=== PATIENT | male | born 1950 | race Caucasian/White ===

== ENCOUNTER 2016-09-14 13:27 | Outpatient (CLI) ==
--- NOTE | 2016-09-14 14:19 | DI ---
Examination: Five radiographic images of the cervical spine. Comparison: None available. Reason for study: Disc degeneration. FINDINGS: Imaging was obtained of the cervical spine from C2-C6. The C6-C7 interspace and C7-T1 in terspace as well as the C6-T1 vertebral bodies are not well seen secondary to summation artifact. T here are operative changes after anterior cervical discectomy and fusion spanning C5-C7. There is ap parent fusion of the cervical spine from C4-C6. There is a reversal of the cervical lordosis with lo ss of intervertebral body disc space height most notably at C3-C4. The prevertebral soft tissues are within normal limits. The dens appears intact on the [place] view. Impression: 1. Multilevel degenerative disc disease with operative changes and although fusion of the vertebral bodies as described. 2. Reversal of the cervical lordosis and intervertebral body disc space height loss. If clinical c oncern exists for an osseous injury, a CT scan may be performed. If clinical concern exists for rad iculopathy, MRI may be performed.
--- NOTE | 2016-09-14 14:30 | DI ---
Examination: Three radiographic images of the lumbar spine. Comparison: None available. Reason for study: Disc degeneration. FINDINGS: Multilevel degenerative disc disease is seen with loss of intervertebral body disc space height most notably at L4-5 and L5-S1 with anterior osteophyte formation and facet hypertrophy. The re is maintenance of the lumbar lordotic curve. The abdominal aorta is calcified. No acute fractur e or listhesis. Impression: 1. Multilevel degenerative disc disease without evidence of acute fracture or listhesis. 2. Intervertebral body disc space height loss at L4-5 and L5- S1.
== END 2016-09-14 13:28 | disposition home or self-care (01) ==
LOC: RAD 13:27
PROVIDERS: ATTEND Pain Medicine Interventional Pain Medicine
DX: M51.26 Other intervertebral disc displacement, lumbar region (principal); M47.816 Spondylosis without myelopathy or radiculopathy, lumbar region; M96.1 Postlaminectomy syndrome, not elsewhere classified; M50.321 Other cervical disc degeneration at C4-C5 level; M50.322 Other cervical disc degeneration at C5-C6 level; M50.323 Other cervical disc degeneration at C6-C7 level; M51.36 Other intervertebral disc degeneration, lumbar region

== ENCOUNTER 2017-06-25 23:47 | Outpatient (CLI) | END 2017-06-25 23:48 | disposition short-term general hospital (02) | LOC: AMBL 23:47 | PROVIDERS: ATTEND Emergency Medicine | DX: R06.02 Shortness of breath (principal); R41.0 Disorientation, unspecified; R40.2421 Glasgow coma scale score 9-12, in the field [EMT or ambulance]; R23.0 Cyanosis; R60.0 Localized edema; R00.0 Tachycardia, unspecified; I49.3 Ventricular premature depolarization; R06.2 Wheezing ==

== ENCOUNTER 2017-10-26 07:26 | Emergency (ER) | payer OTHER ==
[2017-10-26 07:35] VITALS: BP 193/104; TEMP 98.5; BMI 28.1
[2017-10-26] MEDS ORDERED: LASIX ONE (07:45)
--- NOTE | 2017-10-26 08:03 | DI ---
EXAM: Chest one view, frontal view only. HISTORY: Respiratory distress. COMPARISON: None available. FINDINGS: Endotracheal tube tip is less than 1 cm above the tonya. Heart size is normal. Peribron chial thickening and reticulonodular opacities seen throughout both lungs. More discrete nodules als o present throughout both lungs. No pleural effusion or pneumothorax identified. External defibrill ator pad is present. There has been previous ACDF IMPRESSION: 1. Endotracheal tube tip less than 1 cm above the tonya. This should be retracted. 2. Peribronchial thickening, bilateral reticulonodular opacities and bilateral pulmonary nodules whi ch could be infectious, inflammatory or neoplastic. Follow-up is recommended.
[2017-10-26] MEDS ORDERED: URO-JET MUCOUSMEMB ONE (08:10)
[2017-10-26] MEDS ORDERED: ATIVAN IVP STA (08:10)
[2017-10-26] MEDS ORDERED: DIPRIVAN 100 ML VIAL 100 ML IV ONE (08:17)
[2017-10-26] MEDS ORDERED: ROCEPHIN 1 GM in SODIUM CHLORIDE 50 ML IV STA (08:38)
[2017-10-26] MEDS ORDERED: ROCEPHIN ONE (08:42)
--- NOTE | 2017-10-26 08:45 | ED.PDOC ---
Procedures - Intubation Time of Intubation: 07:40 Type of Tube Used: Endotracheal Tube Size: 7.5 Number of Attempts: 3 (multiple attempts on ambulance) Glidescope Used: Yes CO2 Detector Used: Yes Lung Sounds Equal Bilaterally: Yes Intubation Complications: Present: No complications Tube Inserted By: Dr Rodriguez/ Cosme Coyle TRAP OPERATOR called to assist Tube Placement Verified by X-ray: Yes Conscious Sedation - Pre-op Assessment Weight: 185 lb 3.013 oz - Medical History Past Medical History: Other
--- NOTE | 2017-10-26 08:46 | ED.PDOC ---
Procedures - IV/Art Line Insertion Location: lt wrist Type of Line: Peripheral IV Invasive Line/IV Catheter Gauge: 20 Number of Attempts: 1 Blood Return Positive: Yes Invasive Line/IV Flushes Without Difficulty: Yes Conscious Sedation - Pre-op Assessment Weight: 185 lb 3.013 oz - Medical History Past Medical History: Other
--- NOTE | 2017-10-26 08:50 | ED.PDOC ---
General ED Provider: Dr. CHELO ELAM Chief Complaint: Cardiac Arrest Stated Complaint: EMS responded to local residence for thei 67 y/o w male for complaints of SOB. Upon arrival patient awake, responsive, non verbal. Respirations labored, Spontaneous HR. Once moved to ambulance, patient coded. CPR initiated. Not intubated. Upon arrival here patient had received 3 amps EPI and CPR continued. Once on monitor HR sinus tachycardia at 110 with spontaneous labored respirations. Patient bagged and O2 sat 94 %. Non reponsive to verbal stimuli. Prepared to intubate patient. IO peripheral IV and 2nd periperal Line started. Time Seen by Physician: 07:28 Mode of Arrival: Ambulance Information Source: EMT Exam Limitations: Clinical condition Primary Care Provider: FELA SAMAYOA Nursing and Triage Documentation Reviewed and Agree: Yes Reviewed sepsis parameters & appropriate labs ordered?: Yes System Inflammatory Response Syndrome: Not Applicable Sepsis Protocol: For patient's 13 years and over: Temp is 96.8 and below OR 101 and greater Pulse >90 BPM Resp >20/minute Acutely Altered Mental Status Are patient's symptoms suggestive of a new infection, such as: -Pneumonia -Skin, Soft Tissue -Endocarditis -UTI -Bone, Joint Infection -Implantable Device -Acute Abdominal Infection -Wound Infection -Meningitis -Blood Stream Catheter Infection -Unknown System Inflammatory Response Syndrome: 1yr-4yr with HR>145 Cardiac Resuscitation - Cardiac Resuscitation/Physical Exam Onset/Duration: Prior to arrival Witnessed Arrest: Yes Down-time Before BLS Initiated: <2 min Down-time Before ALS Initiated: < 3 min Airway Prehospital Findings: Reports: Patent Breathing Prehospital Findings: Reports: Apnea Circulation/Rhythm Prehospital Findings: Reports: Pulses absent Disability/Neurological Prehospital Findings: Reports: Responsive Airway Prehospital Intervention: Reports: Oral airway Breathing Prehospital Intervention: Reports: Oxygen, Bag-valve mask Circulation/Rhythm Prehospital Intervention: Reports: Chest compressions, IV/IO placed, Epinephrine Breathing Prehospital Response: Present: Equal breath sounds Circulation/Rhythm Prehospital Response: Present: Pulses absent, Asystole Airway ED Findings: Patent, Gag reflex absent Breathing ED Findings: Present: Lung sounds clear, Breath sounds decreased Circulation/Rhythm ED Findings: Present: Pulses present Disability/Neurological ED Findings: Present: Responsive Airway ED Intervention: Chin lift, Jaw thrust Breathing ED Intervention: ETT replaced, Intubated by ED physician Circulation/Rhythm ED Intervention: Chest compressions Airway ED Response: Appropriate Breathing ED Response: ETT in airway, Equal breath sounds, Confirmed by auscultation, Confirmed by CO2 detector Circulation/Rhythm ED Response: Present: Pulses present, Sinus Tachycardia Right Pupil: Reactive Left Pupil: Reactive Review Of Systems: Unable due to extremis EMS/Code Sheet Reviewed: Yes Patient is a DNR: No Patient Has a Living Will: No Resuscitation Successful: Yes Differential Diagnoses: Respiratory Failure Past Medical History - Past Medical History Endocrine: Reports: DM 2 Cardiovascular: Reports: CAD, NM, Hypertension, CHF Respiratory: Reports: COPD, Pneumonia Hematological: Reports: Unknown Gastrointestinal: Reports: Unknown Genitourinary: Reports: Unknown Neuro/Psych: Reports: Unknown Musculoskeletal: Reports: Unknown Cancer: Reports: Unknown - Surgical History General Surgical History: Reports: Unknown - Family History Family History: Reports: Unknown - Social History Smoking Status: Former smoker, Unknown if ever smoked Hx Substance Use: No Interpretation - Radiology Interpretation Radiology Interpretation By: Radiologist Exam Interpreted: Portable CXR Procedures - Intubation Indication: Present: Respiratory Insufficiency Time of Intubation: 07:20 Type of Tube Used: Endotracheal Cricoid Pressure Used: Yes Tube [place] Used: Yes Number of Attempts: 3 Suction Used: Yes Glidescope Used: Yes CO2 Detector Used: Yes Lung Sounds Equal Bilaterally: Yes Intubation Complications: Present: No complications Tube Inserted By: Dr Elam Tube Placement Verified by X-ray: Yes Re-Evaluation - Re-Evaluation Time of Re-Evaluation: 07:45 Status: Improved Vital Signs Stable: Yes Appearance: NAD Lungs: Other (Few wheezes Lt ant /lat chest) Neuro: Other (Awake, non verbal intubated) CV: RRR Critical Care Note - Critical Care Note Total Time (mins): 100 Course - Course Hematology/Chemistry: 10/26/17 07:35 10/26/17 07:35 Orders, Labs, Meds: Lab Review 10/26/17 10/26/17 10/26/17 07:35 07:35 07:35 WBC 21.73 H RBC 4.43 L Hgb 11.0 L Hct 40.5 L MCV 91.4 MCH 24.8 L MCHC 27.2 L RDW Coeff of Eunice 16.7 H Plt Count 315 Immature Gran % (Auto) 3.9 Neut % (Auto) 80.3 Lymph % (Auto) 11.5 [place]ick[place] % (Auto) 4.1 Eos % (Auto) 0.0 Baso % (Auto) 0.2 Immature Gran # (Auto) 0.9 Neut # (Auto) 17.5 H Lymph # (Auto) 2.5 [place] # (Auto) 0.9 Eos # (Auto) 0.0 Baso # (Auto) 0.0 Puncture Site R rad O2 Saturation Not Reportable ABG pH 6.927 L* ABG pCO2 > 130.0 H ABG pO2 66.0 L ABG HCO3 Not Reportable ABG Total CO2 Not Reportable ABG Base Excess Not Reportable Reilly Test + O2 Delivery Device bagged FiO2 % 100.0 Sodium 137 Potassium 5.2 H Chloride 95 L Carbon Dioxide 29 Anion Gap 18.2 BUN 13 Creatinine 1.61 H Estimated GFR (MDRD) 43.00 BUN/Creatinine Ratio 8.07 Glucose 308 H Calcium 9.0 Magnesium 2.6 H Total Bilirubin 0.5 AST 18 ALT 13 Alkaline Phosphatase 103 Total Creatine Kinase 36 Troponin I 0.0470 B-Natriuretic Peptide Total Protein 7.1 Albumin 3.3 L Globulin 3.8 Albumin/Globulin Ratio 0.87 Procalcitonin Urine Color Urine Clarity Urine pH Ur Specific [place] Urine Protein Urine Glucose (UA) Urine Ketones Urine Blood Urine Nitrite Urine Bilirubin Urine Urobilinogen Ur Leukocyte Esterase Urine Microscopic RBC Ur Squamous Epith Cells Amorphous Sediment 10/26/17 10/26/17 10/26/17 07:35 07:35 08:05 WBC RBC Hgb Hct MCV MCH MCHC RDW Coeff of Eunice Plt Count Immature Gran % (Auto) Neut % (Auto) Lymph % (Auto) [place] % (Auto) Eos % (Auto) Baso % (Auto) Immature Gran # (Auto) Neut # (Auto) Lymph # (Auto) [place] # (Auto) Eos # (Auto) Baso # (Auto) Puncture Site R rad O2 Saturation 85.0 L ABG pH 7.245 L* ABG pCO2 83.2 H ABG pO2 62.0 L ABG HCO3 36.1 H ABG Total CO2 39 H ABG Base Excess 9 H Reilly Test + O2 Delivery Device Vent FiO2 % 40.0 Sodium Potassium Chloride Carbon Dioxide Anion Gap BUN Creatinine Estimated GFR (MDRD) BUN/Creatinine Ratio Glucose Calcium Magnesium Total Bilirubin AST ALT Alkaline Phosphatase Total Creatine Kinase Troponin I B-Natriuretic Peptide 787 H Total Protein Albumin Globulin Albumin/Globulin Ratio Procalcitonin 0.11 Urine Color Urine Clarity Urine pH Ur Specific [place] Urine Protein Urine Glucose (UA) Urine Ketones Urine Blood Urine Nitrite Urine Bilirubin Urine Urobilinogen Ur Leukocyte Esterase Urine Microscopic RBC Ur Squamous Epith Cells Amorphous Sediment 10/26/17 10/26/17 08:25 08:40 WBC RBC Hgb Hct MCV MCH MCHC RDW Coeff of Eunice Plt Count Immature Gran % (Auto) Neut % (Auto) Lymph % (Auto) [place] % (Auto) Eos % (Auto) Baso % (Auto) Immature Gran # (Auto) Neut # (Auto) Lymph # (Auto) [place] # (Auto) Eos # (Auto) Baso # (Auto) Puncture Site R brach O2 Saturation 91.0 L ABG pH 7.314 L ABG pCO2 68.7 H ABG pO2 68.0 L ABG HCO3 34.9 H ABG Total CO2 37 H ABG Base Excess 9 H Reilly Test + O2 Delivery Device Vent FiO2 % 50.0 Sodium Potassium Chloride Carbon Dioxide Anion Gap BUN Creatinine Estimated GFR (MDRD) BUN/Creatinine Ratio Glucose Calcium Magnesium Total Bilirubin AST ALT Alkaline Phosphatase Total Creatine Kinase Troponin I B-Natriuretic Peptide Total Protein Albumin Globulin Albumin/Globulin Ratio Procalcitonin Urine Color Yellow Urine Clarity Slightly Urine pH 6.0 Ur Specific [place] >=1.030 Urine Protein 3+ Urine Glucose (UA) Negative Urine Ketones Negative Urine Blood Negative Urine Nitrite Negative Urine Bilirubin Negative Urine Urobilinogen 0.2 Ur Leukocyte Esterase Negative Urine Microscopic RBC 0-2 Ur Squamous Epith Cells 0-2 Amorphous Sediment 1+ Orders Category Date Time Status ABG DRAW REQUEST Stat CARDIO 10/26/17 08:12 Ordered ABG DRAW REQUEST Stat CARDIO 10/26/17 08:16 Ordered ABG DRAW REQUEST Stat CARDIO 10/26/17 08:40 Ordered EKG-(ED ONLY) Stat CARDIO 10/26/17 07:50 Ordered ABG Stat LAB 10/26/17 07:35 Completed ABG Stat LAB 10/26/17 08:05 Completed ABG Stat LAB 10/26/17 08:40 Completed BLOOD CULTURE (ED ONLY) Stat LAB 10/26/17 08:54 Received BNP [B-TYPE NATRIURETIC PEPTIDE] Stat LAB 10/26/17 07:35 Completed CBC W/ AUTO DIFF Stat LAB 10/26/17 07:35 Completed COMPREHENSIVE METABOLIC PANEL Stat LAB 10/26/17 07:35 Completed CREATINE KINASE Stat LAB 10/26/17 07:35 Completed LACTIC ACID Stat LAB 10/26/17 08:54 Received MAGNESIUM Stat LAB 10/26/17 07:35 Completed PROCALCITONIN Stat LAB 10/26/17 07:35 Completed TROPONIN I Stat LAB 10/26/17 07:35 Completed UA [URINALYSIS C & S IF INDICATED] Stat LAB 10/26/17 08:25 Completed Ceftriaxone Sodium [Rocephin] MEDS 10/26/17 08:42 Discontinued 1 gm .ROUTE .STK-MED ONE Ceftriaxone Sodium [Rocephin] 1 gm MEDS 10/26/17 08:38 Discontinued 0.9 % Sodium Chloride [Sodium Chloride] 50 ml IV ONCE Furosemide [Lasix] MEDS 10/26/17 07:45 Discontinued 40 mg .ROUTE .STK-MED ONE Lidocaine HCl [Uro-Jet] MEDS 10/26/17 08:10 Discontinued 10 ml MUCOUSMEMB .STK-MED ONE Premix 250 ml D5w 1 bag MEDS 10/26/17 09:00 Active Dopamine HCl/D5w [Dopamine] 400 mg IV 2 mcg/kg/min Propofol Inj [Diprivan 100 ml Vial] 100 ml MEDS 10/26/17 08:17 Discontinued IV .STK-MED CHEST, 1V AP ONLY Stat RADS 10/26/17 07:50 Completed Medications Generic Name Dose Route Start Last Admin Trade Name Freq PRN Reason Stop Dose Admin Dopamine HCl/Dextrose 400 mg/ 250 mls @ 6.3 mls/hr 10/26/17 09:00 Dextrose IV .Q24H SHAHID Protocol 2 MCG/KG/MIN Discontinued Medications Generic Name Dose Route Start Last Admin Trade Name Freq PRN Reason Stop Dose Admin Ceftriaxone Sodium 1 gm/ 50 mls @ 75 mls/hr 10/26/17 08:38 10/26/17 08:45 Sodium Chloride IV 10/26/17 09:17 75 mls/hr ONCE STA Administration Vital Signs: Temp Pulse Resp BP Pulse Ox 10/26/17 07:28 98.5 F 108 H 12 193/104 H 96 Departure - Departure Time of Disposition: :15 Disposition: TSF SHORT-TRM HOSP Discharge Problem: Cardiac arrest due to respiratory disorder, Acute respiratory failure with hypoxia and hypercarbia Condition: Serious Pt referred to PMD for follow-up: Yes IPMP verified?: No Allergies/Adverse Reactions: Allergies No Known Allergies Allergy (Unverified 04/29/16 11:42) Transfer Form Completed: Yes Disposition Discussed With: Patient, Family Additional Information: Fela from anesthesia responded to assist with Critical care mgt Dr Samayoa came to dept to evaluate patients status, requesting pt once stable to transfer to [facility]. IV Diprovan 40 mg administerd by BOOM TENDER for patients restlessness follow by Ativan 1 mg Dopamine ordered to use prn if BP decreases and not responsive to fluid bolus and positioning change/trendeleberg. Not initiated Discussed with Dr Samayoa who concurred with transfer to [facility] [place] for direct admit to his service/pulmonary consulting. Patient discharged from dept and transferred at 0915 hrs, stable and improved from time of admission . DANI
[2017-10-26] MEDS ORDERED: DOPAMINE 400 MG in PREMIX 250 ML D5W 1 BAG IV SCH (09:00)
== END 2017-10-26 09:20 | disposition short-term general hospital (02) ==
LOC: ED 07:26
DX: J96.01 Acute respiratory failure with hypoxia (principal); J96.02 Acute respiratory failure with hypercapnia; I46.8 Cardiac arrest due to other underlying condition; J44.9 Chronic obstructive pulmonary disease, unspecified; E11.9 Type 2 diabetes mellitus without complications; I50.9 Heart failure, unspecified; I10 Essential (primary) hypertension; I25.2 Old myocardial infarction; I25.10 Atherosclerotic heart disease of native coronary artery without angina pectoris
CPT/HCPCS: 36415; 80053; 81001; 82550; 82803; 83605; 83735; 83880; 84145; 84484; 85025; 87040; 93005; 93010; 96361; 96365; 96375; 99291; 99292

== ENCOUNTER 2017-12-02 15:18 | Outpatient (CLI) | payer OTHER ==
--- NOTE | 2017-12-02 16:35 | DI ---
EXAM: Radiographs, cervical spine HISTORY: Neck pain. COMPARISON: 09/14/2016. TECHNIQUE: Three views. FINDINGS: ACDF changes noted at C7-T1. There is reversal of the normal lordosis centered at C5. An kylosis across C5 and C6 and C6 and C7 noted. Vertebral body heights are maintained. There is moder ate loss of disc height at C3-4. No acute fracture or subluxation identified. At least moderate fac et arthropathy and uncovertebral hypertrophy noted. Prevertebral soft tissues are without acute abno rmality. Since the prior study, there has been no significant interval change. IMPRESSION: Stable postoperative and degenerative changes.
--- NOTE | 2017-12-02 16:43 | DI ---
EXAM: Radiographs, sternum HISTORY: Sternal pain. COMPARISON: None available. TECHNIQUE: Two views. FINDINGS/IMPRESSION: Age indeterminate depressed fracture of the anterior cortex of the upper portion of the sternal body noted. Consider CT if further evaluation is needed.
--- NOTE | 2017-12-03 14:14 | DI ---
EXAM: Three views of the thoracic spine. History: Thoracic back pain. Findings: Postsurgical changes of the cervical spine. Osteopenia. Atherosclerotic vascular calcifi cations. There is a focal kyphosis of the cervical spine. No acute fracture or subluxation. There i s moderate to severe disc space narrowing at T4-5 and T5-6. Moderate disc space narrowing seen elsew here with endplate sclerosis and osteophyte formation. Impression: 1. No acute osseous abnormality of the thoracic spine. 2. Degenerative disc disease.
== END 2017-12-02 15:19 | disposition home or self-care (01) ==
LOC: RAD 15:18
PROVIDERS: ATTEND Family Medicine
DX: M54.2 Cervicalgia (principal); R07.89 Other chest pain

== ENCOUNTER 2017-12-04 21:45 | Emergency (ER) ==
[2017-12-04 21:50] VITALS: BP 113/70; TEMP 99.5; BMI 25.5
--- NOTE | 2017-12-04 22:16 | ED.PDOC ---
General ED Provider: Dr. OSWALDO MIRANDA Chief Complaint: Shortness of Air Stated Complaint: Poor appatite, weight loss. Recent history of respiratory failure. Blood pressure was low at home. Time Seen by Physician: 22:13 Mode of Arrival: Wheelchair Information Source: Patient, Family Primary Care Provider: FELA EUGENE Nursing and Triage Documentation Reviewed and Agree: Yes Does patient meet sepsis criteria?: No System Inflammatory Response Syndrome: Not Applicable Sepsis Protocol: For patient's 13 years and over: Temp is 96.8 and below OR 101 and greater Pulse >90 BPM Resp >20/minute Acutely Altered Mental Status Are patient's symptoms suggestive of a new infection, such as: -Pneumonia -Skin, Soft Tissue -Endocarditis -UTI -Bone, Joint Infection -Implantable Device -Acute Abdominal Infection -Wound Infection -Meningitis -Blood Stream Catheter Infection -Unknown Review of Systems - Review Of Systems Constitutional: Reports: No symptoms Eyes: Reports: No symptoms Ears, Nose, Mouth, Throat: Reports: No symptoms Respiratory: Reports: Short of air (chronic unchaged ), Stridor, Wheezing Cardiac: Reports: No symptoms GI: Reports: No symptoms : Reports: No symptoms Musculoskeletal: Reports: No symptoms Skin: Reports: No symptoms Neurological: Reports: No symptoms Endocrine: Reports: No symptoms Hematologic/Lymphatic: Reports: No symptoms All Other Systems: Reviewed and Negative Past Medical History - Past Medical History Endocrine: Reports: DM 2 Cardiovascular: Reports: CAD, [place], Hypertension, CHF Respiratory: Reports: COPD, Pneumonia Hematological: Reports: Unknown Gastrointestinal: Reports: Unknown Genitourinary: Reports: Unknown Neuro/Psych: Reports: Unknown Musculoskeletal: Reports: Unknown Cancer: Reports: Unknown - Surgical History General Surgical History: Reports: Unknown - Family History Family History: Reports: Unknown - Social History Smoking Status: Current every day smoker, Heavy tobacco smoker Hx Substance Use: No Alcohol Screening: None - Immunizations Tetanus Shot up to Date: Yes Physical Exam - Physical Exam Appearance: Ill-appearing Ill-appearing: Mild Pain Distress: Mild Eyes: CECILIA, EOMI, Conjunctiva clear ENT: Ears normal, Nose normal, Oropharynx normal Neck: Supple Respiratory: Airway patent, Breath sounds clear, Breath sounds equal, Respirations nonlabored Cardiovascular: RRR, Pulses normal, No rub, No murmur GI/: Soft, Nontender, No masses, Bowel sounds normal, No Organomegaly Musculoskeletal: Normal strength, ROM intact, No edema, No calf tenderness Skin: Warm, Dry, Normal color Neurological: Sensation intact, Motor intact, Reflexes intact, Cranial nerves intact, Alert, Oriented Psychiatric: Affect appropriate, Mood appropriate Critical Care Note - Critical Care Note Total Time (mins): 0 Comments: Patient's breathing status is at baseline. Course - Course Hematology/Chemistry: 12/04/17 22:20 12/04/17 22:20 Orders, Labs, Meds: Lab Review 12/04/17 12/04/17 12/04/17 22:11 22:20 22:20 WBC 10.80 H RBC 5.14 Hgb 12.4 L Hct 44.6 MCV 86.8 MCH 24.1 L MCHC 27.8 L RDW Coeff of Eunice 16.6 H Plt Count 202 Immature Gran % (Auto) 0.3 Neut % (Auto) 80.3 Lymph % (Auto) 8.5 L [place] % (Auto) 9.3 Eos % (Auto) 1.3 Baso % (Auto) 0.3 Immature Gran # (Auto) 0.0 Neut # (Auto) 8.7 H Lymph # (Auto) 0.9 [place] # (Auto) 1.0 Eos # (Auto) 0.1 Baso # (Auto) 0.0 Hypochromasia 1+ Anisocytosis Not present Puncture Site Lr O2 Saturation 93.0 L ABG pH 7.355 ABG pCO2 70.9 H ABG pO2 72.0 L ABG HCO3 39.6 H ABG Total CO2 42 H ABG Base Excess 14 H Reilly Test + O2 Delivery Device Nc Oxygen Liter Flow 3.00 FiO2 % 32.0 Sodium 137 Potassium 3.9 Chloride 92 L Carbon Dioxide 38 H Anion Gap 10.9 BUN 19 H Creatinine 1.47 H Estimated GFR (MDRD) 48.00 BUN/Creatinine Ratio 12.92 Glucose 110 Calcium 9.7 Total Bilirubin 0.6 AST 17 ALT 17 Alkaline Phosphatase 102 Total Protein 7.1 Albumin 3.2 L Globulin 3.9 Albumin/Globulin Ratio 0.82 Orders Category Date Time Status ABG DRAW REQUEST Stat CARDIO 12/04/17 22:11 Completed ABG Stat LAB 12/04/17 22:11 Completed CBC W/ AUTO DIFF Stat LAB 12/04/17 22:20 Completed COMPREHENSIVE METABOLIC PANEL Stat LAB 12/04/17 22:20 Completed RBC MORPHOLOGY Stat LAB 12/04/17 22:20 Completed Vital Signs: Temp Pulse Resp BP Pulse Ox 12/04/17 21:45 99.5 F 89 22 113/70 89 L Departure - Departure Time of Disposition: 23:11 Disposition: HOME SELF-CARE Discharge Problem: COPD (chronic obstructive pulmonary disease) Qualifiers: COPD type: unspecified COPD Qualified Code(s): J44.9 - Chronic obstructive pulmonary disease, unspecified Instructions: COPD (Chronic Obstructive Pulmonary Disease) (ED) Condition: Stable Pt referred to PMD for follow-up: Yes IPMP verified?: No Additional Instructions: Continue home Medications Follow up with your PCP in 3 days Return if worse. Allergies/Adverse Reactions: Allergies No Known Allergies Allergy (Unverified 04/29/16 11:42) Disposition Discussed With: Patient, Family
== END 2017-12-04 23:18 | disposition home or self-care (01) ==
LOC: ED 21:45
DX: J44.9 Chronic obstructive pulmonary disease, unspecified (principal); R06.02 Shortness of breath; R63.4 Abnormal weight loss; E11.9 Type 2 diabetes mellitus without complications; I25.2 Old myocardial infarction; I10 Essential (primary) hypertension; I25.10 Atherosclerotic heart disease of native coronary artery without angina pectoris; I50.9 Heart failure, unspecified; F17.210 Nicotine dependence, cigarettes, uncomplicated
CPT/HCPCS: 36415; 80053; 82803; 85008; 85025; 99283

== ENCOUNTER 2017-12-05 09:01 | Outpatient (CLI) | payer OTHER ==
[2017-12-04 21:50] VITALS: BMI 25.5
== END 2017-12-05 09:45 | disposition short-term general hospital (02) ==
LOC: AMBL 09:01
PROVIDERS: ATTEND Emergency Medicine
DX: R53.1 Weakness (principal); R42 Dizziness and giddiness; R41.82 Altered mental status, unspecified; M54.2 Cervicalgia; M54.9 Dorsalgia, unspecified; G89.29 Other chronic pain; J44.9 Chronic obstructive pulmonary disease, unspecified; R00.0 Tachycardia, unspecified